=== PATIENT | female | born 1935 | race Caucasian/White ===

== ENCOUNTER 2022-07-13 16:01 | Emergency (ER) | payer OTHER ==
[2022-07-13 16:27] VITALS: BP 150/62; PULSE 56; RESP 16; BMI 20.5
== END 2022-07-13 19:56 | disposition home or self-care (01) ==
LOC: FER 16:01
DX: S69.92XA Unspecified injury of left wrist, hand and finger(s), initial encounter (principal); W01.0XXA Fall on same level from slipping, tripping and stumbling without subsequent striking against object, initial encounter; Y93.01 Activity, walking, marching and hiking
CPT/HCPCS: 72170-TC-FY; 73130-TC-LT-FY; 73502-TC-RT-FY; 73552-TC-RT-FY; 99284-25

== ENCOUNTER 2024-01-26 13:52 | Emergency (ER) | payer OTHER ==
[2024-01-26 13:58] VITALS: BP 158/67; PULSE 71; RESP 16; TEMP 97.6; BMI 46.7
[2024-01-26] MEDS ORDERED: ACETAMINOPHEN 325 MG TABLET (FP) ONE (14:30)
[2024-01-26] MEDS: ACETAMINOPHEN 325 MG TABLET (FP) PO ONE (14:33)
[2024-01-26] MEDS ORDERED: TRANEXAMIC ACID 1000 MG/10 ML VIAL ONE ×2 (15:33→17:00)
[2024-01-26] MEDS: TRANEXAMIC ACID 1000 MG/10 ML VIAL IVPUSH ONE (17:20)
[2024-01-26] MEDS ORDERED: LIDO 2%/EPI 1:200000 PRESRVFRE (20 ML SDVIAL) ONE (18:18)
[2024-01-26] MEDS: LIDOCAINE 1.5%-EPINEPHRINE 1:200,000/PF 30 ML VIAL INF ONE (18:25)
[2024-01-26] MEDS: LIDOCAINE HCL/EPINEPHRINE/PF 20 ML VIAL IVPUSH ONE (18:31)
[2024-01-26] MEDS ORDERED: DIPHTH,PERTUSS(ACELL),TET 0.5 ML DISP.SYRIN IM ONE (18:55)
[2024-01-26] MEDS: DIPHTH,PERTUSS(ACELL),TET 0.5 ML DISP.SYRIN IM ONE (18:57)
== END 2024-01-26 19:07 | disposition home or self-care (01) ==
LOC: FER 13:52
PROC: 3E033GC Introduction of Other Therapeutic Substance into Peripheral Vein, Percutaneous Approach (ICD-10-PCS; principal; 2024-01-26)
DX: S05.42XA Penetrating wound of orbit with or without foreign body, left eye, initial encounter (principal); S60.415A Abrasion of left ring finger, initial encounter; S60.417A Abrasion of left little finger, initial encounter; M79.641 Pain in right hand; W01.198A Fall on same level from slipping, tripping and stumbling with subsequent striking against other object, initial encounter; Y93.01 Activity, walking, marching and hiking
CPT/HCPCS: 70450-TC; 72125-TC; 73130-TC-RT-FY; 99284-25